=== PATIENT | female | born 1975 | race Caucasian/White ===

== ENCOUNTER → 2022-07-02 15:57 | Outpatient (CLI) | payer OTHER, SELFPAY ==
--- NOTE | 2022-07-02 | DI.RAD.S_ITS ---
PROCEDURE: XR LUMBAR SPINE 2-3V INDICATIONS: M99.11 TECHNIQUE: 3 views of the lumbar spine were acquired. COMPARISON: None. FINDINGS: Bones: 5 [id number] vertebrae are present. There is normal bony alignment. No vertebral body compression fractures. No suspicious bony lesions. Incidental note made of incomplete fusion of the posterior elements of S1. Soft tissues: Overlying bowel gas pattern is normal. No suspicious soft tissue calcifications. IMPRESSION: No evidence acute bony abnormality of the lumbar spine. Incidental note made of incomplete fusion of the posterior elements of S1. Dictated by: Amauri Pedro M.D. on 07/02/2022 at 17:04 Approved by: Amauri Pedro M.D. on 07/02/2022 at 17:05
--- NOTE | 2022-07-02 | DI.RAD.S_ITS ---
PROCEDURE: XR CERVICAL SPINE 2V OR 3V INDICATIONS: M99.11 TECHNIQUE: 3 view(s) of the cervical spine were acquired. COMPARISON: None. FINDINGS: Bones: No fractures or dislocations to the C7 level. There is loss of the expected cervical lordosis. The lateral masses of C1 appear intact on the odontoid view. No suspicious bony lesions. Soft tissues: No prevertebral soft tissue swelling. IMPRESSION: No radiographic abnormalities. Dictated by: Patricia Lorenzo M.D. on 07/02/2022 at 16:56 Approved by: Patricia Lorenzo M.D. on 07/02/2022 at 16:56
--- NOTE | 2022-07-02 | DI.RAD.S_ITS ---
PROCEDURE: XR THORACIC SPINE 3V INDICATIONS: M99.11 TECHNIQUE: 3 views of the thoracic spine were acquired. COMPARISON: None. FINDINGS: Bones: No fractures or dislocations. No suspicious bony lesions. 12 pairs of ribs are noted, and appear intact where visualized. Soft tissues: No paravertebral stripe thickening. IMPRESSION: No radiographic abnormalities. Dictated by: Patricia Lorenzo M.D. on 07/02/2022 at 17:14 Approved by: Patricia Lorenzo M.D. on 07/02/2022 at 17:14
== END ==
PROVIDERS: Referring Provider Chiropractor; Visit Provider Chiropractor
DX: M99.11 Subluxation complex (vertebral) of cervical region (principal); M99.02 Segmental and somatic dysfunction of thoracic region; M99.03 Segmental and somatic dysfunction of lumbar region; M99.04 Segmental and somatic dysfunction of sacral region; M99.05 Segmental and somatic dysfunction of pelvic region; M54.2 Cervicalgia; M54.6 Pain in thoracic spine; M54.50 Low back pain, unspecified
CPT/HCPCS: 72040; 72072; 72100